=== PATIENT | female | born 1965 | race African-American/Black ===

== ENCOUNTER 2022-08-21 14:45 | Emergency (ER) | payer OTHER ==
[2022-08-21 14:51] VITALS: RESP 18; TEMP 97.6; BMI 20.3
[2022-08-21] MEDS ORDERED: LIDOCAINE 5% TOPICAL PATCH TP ONE (16:08)
[2022-08-21] MEDS ORDERED: LIDOCAINE 5% TOPICAL PATCH ONE (16:17)
[2022-08-21 17:07] LABS: BASO % 0.8 % (0-2.0); EOS % 1.3 % (0-4.5); HEMATOCRIT 35.8 % (32.4-45.2); HEMOGLOBIN 11.4 GM/dL (10.7-15.3); LYMPH % 27.5 % (8-40); MCH 21.1 pg (25.7-33.7); MCHC 31.9 g/dl (32.0-36.0); MEAN PLT VOLUME 9.7 fl (7.5-11.1); MONO % 7.7 % (3.8-10.2); NEUT % 62.7 % (42.8-82.8); PLATELET COUNT 240 10^3/uL (134-434); RBC 5.42 M/mm3 (3.60-5.2); RDW 14.8 % (11.6-15.6); WHITE BLOOD COUNT 4.3 K/mm3 (4.0-10.0)
[2022-08-21 17:27] LABS: POTASSIUM 4.3 mmol/L (3.5-5.1)
[2022-08-21 17:30] LABS: BLOOD UREA NITROGEN 18.3 mg/dL (7-18); CALCIUM 9.5 mg/dL (8.5-10.1)
[2022-08-21 17:33] LABS: CREATININE 0.6 mg/dL (0.55-1.3)
[2022-08-21 17:35] LABS: BILIRUBIN,TOTAL 0.2 mg/dL (0.2-1); TOT PROT 7.1 g/dl (6.4-8.2)
[2022-08-21 18:27] LABS: ANISOCYTOSIS 2+; MACROCYTOSIS 0
[2022-08-21 19:05] VITALS: BP 124/68; PULSE 74
[2022-08-21] MEDS ORDERED: LIDOCAINE PATCH REMOVAL MC SCH (22:00)
== END 2022-08-21 19:06 | disposition home or self-care (01) ==
LOC: JER 14:45
DX: M25.512 Pain in left shoulder (principal); R00.2 Palpitations; R07.9 Chest pain, unspecified; R20.2 Paresthesia of skin; M54.2 Cervicalgia; M54.12 Radiculopathy, cervical region; Z20.822 Contact with and (suspected) exposure to COVID-19
CPT/HCPCS: 0241U-QW; 36415; 71046-TC-FY; 80053; 84439; 84443; 84484; 85025; 93005; 93010; 99285-25